=== PATIENT | male | born 1935 | race Caucasian/White ===

== ENCOUNTER 2017-02-14 06:50 | Emergency (ER) | payer MEDICARE, OTHER ==
[2017-02-14] MEDS ORDERED: SODIUM CHLORIDE 0.9% 500 ML 500 ML IV ONE (07:28)
[2017-02-14] MEDS ORDERED: SODIUM CHLORIDE 0.9% FLUSH 10 ML SOL IV PRN (07:40)
[2017-02-14 07:45] LABS: BASOPHILS % (AUTO) 1 % (0-3); EOSINOPHILS % (AUTO) 1 % (0-9); HEMATOCRIT 33 % (39-53); MEAN CORPUSCULAR HGB CONC 36.8 gm/dl (32.0-36.0); MEAN CORPUSCULAR VOLUME 88 fL (80-100); MONOCYTES % (AUTO) 9.1 % (0-12); NEUTROPHILS % (AUTO) 78.9 % (37-80)
[2017-02-14 08:03] LABS: ALBUMIN 3.4 gm/dl (3.4-5.0); POTASSIUM 4.6 mMol/L (3.5-5.1)
[2017-02-14 08:40] VITALS: TEMP 97.5; O2SAT 98
[2017-02-14 10:15] VITALS: BP 140/98; PULSE 84; RESP 22
== END 2017-02-14 09:45 | disposition short-term general hospital (02) | DRG 301 ==
LOC: ED 06:50
DX: I71.02 Dissection of abdominal aorta (principal)
CPT/HCPCS: 71270; 74170; 80053; 85025; 99291; Q9967